=== PATIENT | female | born 1960 | race Caucasian/White ===

== ENCOUNTER 2016-09-30 19:12 | Emergency (ER) | payer OTHER ==
[2016-09-30] MEDS ORDERED: DOXYcycline CAP(*) 100 MG PO ONE (21:51)
--- NOTE | 2016-09-30 21:55 | ED ---
Bite Injury/Animal - HPI Summary HPI Summary: 56F presents with tick on her left upper thigh for a day. She does not know how long the tick has been but she believes it has been at least a day. She states she may have swiped some of the tick away. She states the area is itchy. She denies any fever or surrounding rash. - History of Current Complaint Chief Complaint: EDExtremityLower Stated Complaint: TICK ON INNER THIGH Time Seen by Provider: 09/30/16 21:13 Pain Intensity: 6 - Allergies/Home Medications Allergies/Adverse Reactions: Allergies Allergy/AdvReac Type Severity Reaction Status Date / Time Phenobarbital Allergy Rash Verified 09/30/16 19:32 PMH/Surg Hx/FS Hx/Imm Hx Endocrine/Hematology History: Denies: Hx Anticoagulant Therapy Cardiovascular History: Reports: Hx Hypertension Infectious Disease History: Denies: Traveled Outside the [place] in Last 30 Days - Family History Known Family History: Positive: Hypertension - Social History Alcohol Use: Occasionally Substance Use Type: Reports: None Type: Cigarettes Amount Used/How Often: 1 PPD Review of Systems Negative: Fever Negative: Chest Pain Negative: Shortness Of Breath Positive: Other - tick bite All Other Systems Reviewed And Are Negative: Yes Physical Exam Triage Information Reviewed: Yes Vital Signs On Initial Exam: Initial Vitals Temp Pulse Resp BP Pulse Ox 97.8 F 60 16 122/75 99 09/30/16 19:25 09/30/16 19:25 09/30/16 19:25 09/30/16 19:25 09/30/16 19:25 Vital Signs Reviewed: Yes Appearance: Positive: Well-Appearing Skin: Positive: Warm, Dry, Other - tick bite in left upper posterior thigh with tick head left and small area of erythema around Head/Face: Positive: Normal Head/Face Inspection Eyes: Positive: Normal, Conjunctiva Clear Respiratory/Lung Sounds: Positive: Clear to Auscultation, Breath Sounds Present Cardiovascular: Positive: Normal, RRR Diagnostics - Vital Signs Vital Signs Temp Pulse Resp BP Pulse Ox 09/30/16 20:45 97.4 F 59 16 110/66 100 09/30/16 19:25 97.8 F 60 16 122/75 99 - Laboratory Lab Statement: Any lab studies that have been ordered have been reviewed, and results considered in the medical decision making process. Bite Injury Course/Dx - Course Course Of Treatment: 56F presents with left upper leg tick for a day. on exam the head is just present. was able to remove part of it with tweezers. gave 200 mg doxycylcine to ppx for lyme disease, patient understands and agrees with plan - Diagnoses Differential Diagnosis/HQI/PQRI: Positive: Other - tick, lyme Provider Diagnosis: Tick bite Discharge - Discharge Plan Condition: Good Disposition: HOME Patient Education Materials: Tick Bite (ED) Referrals: Leana Zavala MD [Primary Care Provider] - Additional Instructions: You have been prophylactically treated for Lyme disease Return to ED if develop any rash or signs of infection
[2016-09-30 22:18] VITALS: BP 108/64
== END 2016-09-30 22:17 | disposition home or self-care (01) ==
LOC: ED 19:12
DX: S70.362A Insect bite (nonvenomous), left thigh, initial encounter (principal); W57.XXXA Bitten or stung by nonvenomous insect and other nonvenomous arthropods, initial encounter; Y93.9 Activity, unspecified; Y92.9 Unspecified place or not applicable
CPT/HCPCS: 99282; A9270-GY